=== PATIENT | male | born 1955 | race Caucasian/White ===

== ENCOUNTER → 2022-05-22 | Outpatient (CLI) | payer MEDICARE ==
--- NOTE | 2022-05-22 11:15 | XR ---
EXAMINATION TYPE: XR cervical spine comp DATE OF EXAM: 05/22/2022 TECHNIQUE: Frontal, lateral, oblique, and open mouth view of the cervical spine are obtained. HISTORY: [id number] CERVICALGIA,RADICULOPATHY COMPARISON: None FINDINGS: The cervical spine is visualized from C1 thru the mid C7 level, there is slight grade 1 an terolisthesis C4 on C5 and C5 on C6. The pre-vertebral soft tissue appears within normal limits. Th e C1-C2 articulation is within normal limits on the open mouth view. Vertebral body heights are maint ained. Mild disc space narrowing C6-C7 level. Incomplete evaluation of the entire C7 vertebra and C7- 1 disc space. Oblique images appear within normal limits. Overlying soft tissue is unremarkable. IMPRESSION: As above.
== END | disposition home or self-care (01) ==
LOC: RADXRYALE 10:50
PROVIDERS: ATTEND Family Medicine
DX: M54.12 Radiculopathy, cervical region (principal); R20.2 Paresthesia of skin
CPT/HCPCS: 72050

== ENCOUNTER → 2022-06-28 | Outpatient (CLI) | payer MEDICARE ==
--- NOTE | 2022-06-28 10:35 | MR ---
EXAMINATION TYPE: MR cervical spine wo con DATE OF EXAM: 06/28/2022 COMPARISON: X-ray 05/22/2022 HISTORY: Neck and right arm pain TECHNIQUE: Multiplanar, multisequence images of the cervical spine were acquired without contrast. C2-C3: No evidence for degenerative disc disease. No disc bulge/herniation or protrusion. No Canal stenosis. Foramina are patent bilaterally. C3-C4: Bilateral facet arthropathy and uncovertebral joint particularly with mild disc desiccation bu t no discrete herniation or canal stenosis C4-C5: Degenerative disc disease and facet uropathy with mild uncovertebral joint. Mild bilateral for aminal impingement but no disc herniation or canal stenosis C5-C6: Mild disc desiccation with facet arthropathy. No foraminal protrusion or canal stenosis. No fo aleksandr herniation. C6-C7: Moderate degenerative disc disease with broad-based central disc protrusion. No spinal cord co ntact. Mild effacement of thecal sac and moderate bilateral foraminal enlargement. The disc protrusio n extends greater far laterally and paracentral to the right. . Mild central stenosis. C7-T1: No evidence for degenerative disc disease. No disc bulge/herniation or protrusion. No Canal stenosis. Foramina are patent bilaterally. Cervical segments are intact. There is normal alignment. Cervical spinal cord is of normal signal. Craniovertebral junction relationships are within normal limits. IMPRESSION: 1. Multilevel degenerative disc disease most marked at C6-C7. At C6-C7 there is a broad-based disc pr otrusion or herniation with greater right paracentral and lateral component. Severe right-sided and m oderate left foraminal encroachment and mild central stenosis.
== END | disposition home or self-care (01) ==
LOC: RADMRIMAIN 08:39
PROVIDERS: ATTEND Family Medicine
DX: M54.12 Radiculopathy, cervical region (principal); R22.0 Localized swelling, mass and lump, head
CPT/HCPCS: 72141

== ENCOUNTER 2022-08-14 08:58 | Day surgery (SDC) | payer MEDICARE ==
[2022-08-07 12:38] VITALS: BMI 38.6
[~2022-08-14 08:58] MED LIST: LACTATED RINGERS 1,000 ML IV SCH
[2022-08-14 09:38] VITALS: RESP 16; TEMP 97.5
[2022-08-14] MEDS ORDERED: PROPOFOL 10 MG/ML 20 ML VIAL IV ONE (10:36)
--- NOTE | 2022-08-14 10:55 | P.PCN ---
Date of Procedure: 08/14/22 Procedure(s) Performed: BRIEF HISTORY: Patient is a 67-year-old pleasant white male scheduled for an elective colonoscopy as a part of screening for colon cancer. His last colonoscopy was 10 years ago. PROCEDURE PERFORMED: Colonoscopy. PREOPERATIVE DIAGNOSIS: Screening for colon cancer. IV sedation per Anesthesia. PROCEDURE: After informed consent was obtained, the patient, was brought into the endoscopy unit. IV sedation was administered by Anesthesia under continuous monitoring. Digital rectal examination was normal. Initially the Olympus CF-160 flexible video colonoscope was then inserted in the rectum, gradually advanced into the cecum without any difficulty. Careful examination was performed as the scope was gradually being withdrawn. Ileocecal valve and the appendiceal orifice were visualized and appeared normal. Prep was excellent. Mucosa of the cecum, ascending colon, transverse colon, descending colon, sigmoid colon, and rectum appeared normal. Scattered sigmoid diverticula cyst. Retroflexion was performed in the rectum and no lesions were seen. The patient tolerated the procedure well. IMPRESSION: Normal-appearing colon from rectum to cecum no evidence of colorectal neoplasia Scattered sigmoid diverticulosis. RECOMMENDATIONS: Findings of this examination were discussed with the patient as well as his family. He was advised to have a repeat screening colonoscopy in 10 years..
[2022-08-14 11:19] VITALS: BP 133/83; PULSE 65
== END 2022-08-14 11:30 | disposition home or self-care (01) ==
LOC: ORWHC2ENDO 08:58
PROVIDERS: ATTEND Internal Medicine Gastroenterology
DX: Z12.11 Encounter for screening for malignant neoplasm of colon (principal); K57.30 Diverticulosis of large intestine without perforation or abscess without bleeding; Z79.899 Other long term (current) drug therapy; Z88.5 Allergy status to narcotic agent
CPT/HCPCS: J2704; G0121

== ENCOUNTER → 2023-05-23 | Outpatient (CLI) | payer MEDICARE ==
[2023-05-23 14:20] LABS: African American GFR (CKD) >90 (>60 ml/min/1.73 sqM); Blood Urea Nitrogen 22 mg/dL (9-20); Non-African American GFR(CKD) 90 (>60 ml/min/1.73 sqM)
--- NOTE | 2023-05-23 19:08 | CT ---
EXAMINATION TYPE: CT urogram wo/w con CT DLP: 5918.4 mGycm, Automated exposure control for dose reduction was used. DATE OF EXAM: 05/23/2023 3:30 PM COMPARISON: CLINICAL INDICATION:Male, 68 years old with history of R31.1 BENIGN ESSENTIAL MICROSCOPIC HEMATURIA; PHH, recurrent UTI's, hematuria TECHNIQUE: Urogram with imaging of the abdomen and pelvis. Coronal and sagittal reformats were performed. 2D and 3D reconstructions are performed to assist visualization of the urinary tract on a separate workstat ion. Contrast used:100 mL of Isovue 370 without and with IV Contrast, Oral contrast used: None. FINDINGS: LOWER CHEST: No significant findings. GENITOURINARY: RIGHT KIDNEY AND URETER: Nonobstructing 3 mm calculus. Simple appearing right renal cyst. No hydronep hrosis or hydroureter. No renal mass or other lesions. No urothelial lesions: no filling defect, dila tion, stricture or wall thickening. LEFT KIDNEY AND URETER: Nonobstructing 5 mm contrast. Simple appearing left renal cyst. No hydronephr osis or hydroureter. No renal mass or other lesions. No urothelial lesions: no filling defect, dilati on, stricture or wall thickening. URINARY BLADDER: Partially distended. Limited evaluation. REPRODUCTIVE: Prostate gland is enlarged measuring up to 6.1 cm. ABDOMEN LIVER: Unremarkable. GALLBLADDER AND BILE DUCTS: Unremarkable PANCREAS: Fatty hypertrophy changes of the pancreatic parenchyma. SPLEEN: Unremarkable. ADRENAL GLANDS: Unremarkable. STOMACH AND BOWEL: . No evidence of bowel obstruction. The appendix is normal. Scattered colonic dive rticula are present. PERITONEUM: No evidence of pneumoperitoneum, free fluid, or adenopathy. VASCULATURE: No evidence of aortic aneurysm. MUSCULOSKELETAL: No acute osseous abnormalities. Mild disc degeneration changes are present throughou t the thoracolumbar spine. LYMPH NODES: No gross evidence for lymphadenopathy. SOFT TISSUE/ABDOMINAL WALL: Unremarkable IMPRESSION: 1. No evidence of renal/urothelial neoplasm. 2. Nonobstructing bilateral renal calculi. 3. Prostatomegaly with median lobe hypertrophy changes, correlate with serum PSA. 4. Colonic diverticulosis.
== END | disposition home or self-care (01) ==
LOC: RADCTMAIN 13:33
PROVIDERS: ATTEND Urology
DX: N20.0 Calculus of kidney (principal); N40.0 Benign prostatic hyperplasia without lower urinary tract symptoms; K57.30 Diverticulosis of large intestine without perforation or abscess without bleeding; N39.0 Urinary tract infection, site not specified; R31.1 Benign essential microscopic hematuria
CPT/HCPCS: 82565; 84520; 74178; 36415; 74400; Q9967

== ENCOUNTER → 2024-02-13 | Outpatient (CLI) | payer MEDICARE ==
[2024-02-13 11:38] LABS: African American GFR (CKD) >90 (>60 ml/min/1.73 sqM); Blood Urea Nitrogen 17 mg/dL (9-20); Non-African American GFR(CKD) >90 (>60 ml/min/1.73 sqM)
--- NOTE | 2024-02-15 17:41 | CT ---
EXAMINATION TYPE: CT abdomen wo/w con DATE OF EXAM: 02/13/2024 COMPARISON: None INDICATION: abd pain, rt side flank pain DLP: 2697 mGycm, Automated exposure control for dose reduction was used. CONTRAST: 100 mL of Isovue 300. Study performed with Oral Contrast TECHNIQUE: Axial images were obtained from above the diaphragm to the pubic rami in the axial plane a t 5 mm thick sections. Reconstructed images are reviewed on the computer in the coronal plane. FINDINGS: Limited CT sections are obtained the lung bases. The lung bases are clear. CT ABDOMEN: Liver: Normal Spleen: Normal Pancreas: Fatty infiltration through the pancreas. Adrenal glands: The adrenal glands are normal. Gallbladder: Normal Kidneys: No masses are evident. No hydronephrosis is present. There is a 3.3 cm cyst on the medial right kidney. There is an anterior 4.6 cm cyst on the left. There is a nonobstructing punctate calci fication in the superior pole left kidney measuring 0.2 cm. An adjacent calcification measures 0.3 cm . There is a nonobstructing renal stone in the posterior lateral left kidney measuring 0.3 cm. A nono bstructing renal stone is at the mid to inferior pole right kidney measuring 0.3 cm. Aorta: Normal Inferior vena cava: Normal. Loops of bowel within the abdomen and pelvis are normal. There are loops of bowel which are incom pletely distended or lack oral contrast limiting their evaluation. IMPRESSION: 1. Fatty infiltration of the pancreas. 2. Bilateral nonobstructing renal stones. 3. Bilateral renal cysts.
== END | disposition home or self-care (01) ==
LOC: RADCTMAIN 10:40
PROVIDERS: ATTEND Family Medicine
DX: N20.0 Calculus of kidney (principal); N28.1 Cyst of kidney, acquired; K86.89 Other specified diseases of pancreas
CPT/HCPCS: 82565; 84520; 74170; 36415; Q9967